=== PATIENT | male | born 2000 | race Caucasian/White ===

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

== ENCOUNTER 2018-08-08 00:07 | Emergency (ER) | payer MEDICAID ==
--- NOTE | 2018-08-08 00:19 | EDPHY ---
H & P Stated Complaint: Bumped back of head on wall x 2 days ago, intermittent COVARRUBIAS since Time Seen by Provider: 08/08/18 00:19 HPI/ROS: HPI CHIEF COMPLAINT: Headache, posterior head trauma HISTORY OF PRESENT ILLNESS: 18-year-old male, history of concussion, closed head injury, and migraines, presents emergency room with a headache. Patient states he was playing his headphones out of his head 2 days ago and jerked his head backwards and struck the back of his head against a concrete pole. States was rather hard this developed a headache. His headache been persistent for the past 2 days. Went to a concert tonight is headache got worse. No vomiting. Global headache throbbing. No focal weakness numbness or tingling. Due to the ongoing headache decided come the emergency room for evaluation. Past Medical History: Migraine headaches, history of concussion, closed head injury Past Surgical History: No recent surgery Social History: Smokes tobacco. Denies alcohol or drugs. Family History: Noncontributory ROS REVIEW OF SYSTEMS: 10 Systems were reviewed and negative with the exception of the elements mentioned in the history of present illness. Exam Constitutional nontoxic, no acute distress triage nursing summary reviewed, vital signs reviewed, awake/alert. Eyes normal conjunctivae and sclera, EOMI, PERRLA. HENT head is atraumatic on exam, normal inspection, atraumatic, moist mucus membranes, no epistaxis, neck supple/ no meningismus, no raccoon eyes. Respiratory clear to auscultation bilaterally, normal breath sounds, no respiratory distress, no wheezing. Cardiovascular rate normal, regular rhythm, no murmur, no edema, distal pulses normal. Gastrointestinal soft, non-tender, no rebound, no guarding, normal bowel sounds, no distension, no pulsatile mass. Genitourinary no CVA tenderness. Musculoskeletal no midline vertebral tenderness, full range of motion, no calf swelling, no tenderness of extremities, no meningismus, good pulses, neurovascularly intact. Skin pink, warm, & dry, no rash, skin atraumatic. Neurologic normal neurological exam, awake, alert and oriented x 3, AAOx3, moves all 4 extremities equally, motor intact, sensory intact, CN II-XII intact , normal cerebellar, normal vision, normal speech. Psychiatric normal mood/affect. Heme/Lymph/Immune no lymphadenopathy. Differential Diagnosis: Includes but is not limited to in a particular order closed-head injury, concussion, intracranial bleed, skull fracture, subdural, epidural Medical Decision Making: Plan for this patient Tylenol 1 g for pain control, CT scan head without contrast. And re-evaluate Re-evaluation: CT scan head without contrast negative for acute traumatic injury. Called to me by Dr. Pereira. [id number]: Patient re-evaluated resting comfortably. CT scan head without contrast is negative for acute traumatic injury. Patient resting. Normal neurological exam. Recommend close follow-up with his primary care doctor/concussion specialist. Return to the ER for worsening symptoms. He understands. Source: Patient - Personal History Current Tetanus Diphtheria and Acellular Pertussis (TDAP): Yes - Medical/Surgical History Hx Asthma: No Hx Chronic Respiratory Disease: No Hx Diabetes: No Hx Cardiac Disease: No Hx Renal Disease: No Hx Cirrhosis: No Hx Alcoholism: No Hx HIV/AIDS: No Hx Splenectomy or Spleen Trauma: No Other PMH: headache - Social History Smoking Status: Former smoker Constitutional: Initial Vital Signs Temperature (C) 36.7 C 08/08/18 00:12 Heart Rate 90 08/08/18 00:12 Respiratory Rate 16 08/08/18 00:12 Blood Pressure 109/71 08/08/18 00:12 O2 Sat (%) 97 08/08/18 00:12 O2 Delivery Mode Room Air Allergies/Adverse Reactions: No Known Allergies Allergy (Unverified 06/14/11 09:53) Home Medications: Medication Instructions Recorded NO HOME MEDICATIONS 06/14/11 Ibuprofen [Motrin (*)] 800 mg PO Q6-8PRN #30 tab 08/25/16 Ondansetron HCl [Zofran] 4 mg PO Q4-6PRN PRN #10 tablet 08/25/16 Medical Decision Making - Data Points Medications Given: Discontinued Medications Acetaminophen (Tylenol) 1,000 mg PO EDNOW ONE Stop: 08/08/18 00:25 Last Admin: 08/08/18 00:46 Dose: 1,000 mg Departure - Departure Disposition: Home, Routine, Self-Care Clinical Impression: Concussion Qualifiers: Encounter type: initial encounter Loss of consciousness presence/duration: without LOC Qualified Code(s): S06.0X0A - Concussion without loss of consciousness, initial encounter Condition: Good Instructions: Concussion (ED) Additional Instructions: 1. Follow up with your primary care doctor. 2. Return emergency room if there is worsening symptoms Referrals: NONE *PRIMARY CARE P,. [Primary Care Provider] - As per Instructions Yanira Root MD [Medical Doctor] - As per Instructions
[2018-08-08] MEDS ORDERED: ACETAMINOPHEN 500 MG TAB PO ONE (00:24)
[2018-08-08 01:48] VITALS: BP 112/68
== END 2018-08-08 01:48 | disposition home or self-care (01) ==
DX: S06.0X0A Concussion without loss of consciousness, initial encounter (principal); F17.200 Nicotine dependence, unspecified, uncomplicated; W22.8XXA Striking against or struck by other objects, initial encounter; Y93.89 Activity, other specified; Y99.9 Unspecified external cause status; Y92.9 Unspecified place or not applicable

== ENCOUNTER 2019-01-28 17:45 | Inpatient (IN) | payer MEDICAID ==
--- NOTE | 2019-01-28 17:51 | EDPHY ---
H & P Time Seen by Provider: 01/28/19 17:47 HPI/ROS: HPI Heroin overdose. Unresponsive. 18-year-old male by ambulance from home. He currently lives with his mother. He has a history of heroin abuse. He reports he has been clean for about 3 weeks but relapsed today. Injection left upper extremity at 5:00 p.m.. Mother last saw him working on his computer. She returned to his room and he was on the ground and unresponsive. She called EMS. On arrival a [employer] he was cyanotic in appearance and not breathing. [employer] sat him up and he started to breathe spontaneously. On EMS arrival he was breathing spontaneously in communicating. They established to IVs bilateral antecubital. Patient was given for 1 mg of IV Narcan and became more alert. No history of trauma. Denies other ingestion. He does not have any complaints at this time. He denies any homicidal or suicidal ideation. ROS: Constitutional: No fever, no chills. As above. Eyes: No discharge. No changes in vision. ENT: No sore throat. No nasal congestion or rhinorrhea. Respiratory: No cough. No shortness of breath. Cardiac: No chest pain, no palpitations. Gastrointestinal: No abdominal pain, no vomiting, no diarrhea. Genitourinary: No hematuria. No dysuria or increased frequency with urination. Musculoskeletal: No back pain. No neck pain. No myalgias or arthralgias. Skin: No rashes. Neurological: No headache. No focal weakness or altered sensation. Past medical history: Heroin abuse. Otherwise no past medical history. Social history: Nonsmoker. Denies alcohol. Currently lives with his mother. As above. Physical Exam: General Appearance: Alert, mildly anxious. He is not in distress.. This patient is responding to questions appropriately and in full sentences. This patient appears well-hydrated and well-nourished. Eyes: Pupils equal and round no pallor or injection. No lid edema, erythema or injection. ENT, Mouth: Mucous membranes are moist. The pharyngeal tissues are unremarkable. No edema or swelling. No asymmetry suggestive of abscess. No erythema or exudates. No tongue lacerations or abrasions. Respiratory: There are no retractions, lungs are clear to auscultation with good air movement bilaterally. Cardiovascular: Regular rate and rhythm. Borderline tachycardia. No murmur. Gastrointestinal: Abdomen is soft and nontender, no masses, bowel sounds normal. No focal tenderness at McBurney's point. No Olvera sign. Neurological: Motor sensory function is grossly intact. Cranial nerves are normal. Gait is normal. Skin: Warm and dry, no rashes. Musculoskeletal: Neck is supple and nontender. Extremities are symmetrical. All joints range without pain or impingement. Psychiatric: No agitation. No depression. Database: EKG: Imaging: Procedures: Emergency department course: Patient placed on a monitor. IV Narcan at the bedside. He has to bilateral antecubital IVs. He will be given 1 L of IV normal saline. Plan for observation at this time. 6:50 p.m., the patient is starting to nod off of bed drop his pulse oximetries. He was given an additional 0.4 mg of IV Narcan. Likely will admit this patient overnight for observation. 7:35 p.m.,, the patient is getting sleepy again. Pulse oximetries on room air in the low 90s. He will be given 0.4 mg of IV Narcan which woke him up again. Plan for admission discussed with the patient and his mother who is now in the room with him. They endorse. Spoke with on-call hospitalist Dr. Leny Mckeon. Case discussed in detail with her. She accepts this patient for admission to the step-down unit. The patient's remaining emergency department course under my care has been uneventful. The patient was admitted to the step-down unit in stable condition. Differential Diagnosis: The differential diagnosis on this patient includes but is not limited to heroin overdose. CVA, acute coronary syndrome, pulmonary embolism unlikely. This represents a partial list of diagnoses considered. These considerations are based on history, physical exam, past history, reassessment and diagnostic testing. Smoking Status: Former smoker Constitutional: Initial Vital Signs Temperature (C) 36.5 C 01/28/19 17:49 Heart Rate 102 H 01/28/19 17:49 Respiratory Rate 16 01/28/19 17:49 Blood Pressure 156/111 H 01/28/19 17:49 O2 Sat (%) 98 01/28/19 17:49 O2 Delivery Mode Nasal Cannula O2 (L/minute) 2 Allergies/Adverse Reactions: No Known Allergies Allergy (Verified 01/28/19 17:49) Home Medications: Medication Instructions Recorded NO HOME MEDICATIONS 07/21/11 Ibuprofen [Motrin (*)] 800 mg PO Q6-8PRN #30 tab 08/25/16 Ondansetron HCl [Zofran] 4 mg PO Q4-6PRN PRN #10 tablet 08/25/16 Medical Decision Making - Data Points Laboratory Results: Laboratory Results 01/28/19 18:01 01/28/19 18:01 01/28/19 01/28/19 18:01 18:01 WBC 12.18 10^3/uL H 10^3/uL (3.80-9.50) RBC 5.62 10^6/uL 10^6/uL (4.40-6.38) Hgb 16.5 g/dL g/dL (13.7-17.5) Hct 49.5 % % (40.0-51.0) MCV 88.1 fL fL (81.5-99.8) MCH 29.4 pg pg (27.9-34.1) MCHC 33.3 g/dL g/dL (32.4-36.7) RDW 14.2 % % (11.5-15.2) Plt Count 317 10^3/uL 10^3/uL (150-400) MPV 9.7 fL fL (8.7-11.7) Neut % (Auto) Not Reported Lymph % (Auto) Not Reported [place] % (Auto) Not Reported Eos % (Auto) Not Reported Baso % (Auto) Not Reported Nucleat RBC Rel Count Not Reported Absolute Neuts (auto) Not Reported Absolute Lymphs (auto) Not Reported Absolute Monos (auto) Not Reported Absolute Eos (auto) Not Reported Absolute Basos (auto) Not Reported Absolute Nucleated RBC Not Reported Immature Gran % Not Reported Seg Neutrophils % 28.0 % % Band Neutrophils % 5.0 % % Lymphocytes % 53.0 % % Monocytes % 7.0 % % Eosinophils % 5.0 % % Basophils % 1.0 % % Metamyelocytes % 1.0 % % Myelocytes % 0.0 % % Promyelocytes % 0.0 % % Blast Cells % 0.0 % % Immature Gran # Not Reported Absolute Seg Neuts 3.41 10^3/uL 10^3/uL (1.70-6.50) Absolute Band Neuts 0.61 10^3/uL 10^3/uL (0.00-0.70) Absolute Lymphocytes 6.46 10^3/uL H 10^3/uL (1.00-3.00) Absolute Monocytes 0.85 10^3/uL H 10^3/uL (0.30-0.80) Absolute Eosinophils 0.61 10^3/uL H 10^3/uL (0.03-0.40) Absolute Basophils 0.12 10^3/uL H 10^3/uL (0.02-0.10) Absolute Metamyelocyte 0.12 10^3/mL H 10^3/mL (0.00-0.00) Absolute Myelocytes 0.00 10^3/mL 10^3/mL (0.00-0.00) Absolute Promyelocytes 0.00 10^3/uL 10^3/uL (0.00-0.00) Absolute Plasma Cells 0.00 10^3/uL 10^3/uL (0.00-0.00) Nucleated RBCs 0 /100 WBC /100 WBC (0-0) RBC/WBC/PLT Morphology NORMAL (NORMAL) Absolute Blast Cells 0.00 10^3/uL 10^3/uL (0.00-0.00) Plasma Cells % 0.0 % % Platelet Estimate ADEQUATE (ADEQ) Smear Review By Pending Sodium 135 mEq/L mEq/L (135-145) Potassium 4.4 mEq/L mEq/L (3.5-5.2) Chloride 102 mEq/L mEq/L (97-110) Carbon Dioxide 25 mEq/l mEq/l (22-31) Anion Gap 8 mEq/L mEq/L (6-14) BUN 14 mg/dL mg/dL (7-23) Creatinine 0.9 mg/dL mg/dL (0.7-1.3) Estimated GFR > 60 Glucose 193 mg/dL H mg/dL (70-100) Calcium 9.8 mg/dL mg/dL (8.5-10.4) Medications Given: Discontinued Medications Sodium Chloride (Ns) 1,000 mls @ 0 mls/hr IV EDNOW ONE; Wide Open PRN Reason: Protocol Stop: 01/28/19 17:56 Last Admin: 01/28/19 18:02 Dose: 1,000 mls Naloxone HCl (Narcan) 0.4 mg IVP EDNOW ONE Stop: 01/28/19 18:52 Last Admin: 01/28/19 18:52 Dose: 0.4 mg Departure - Departure Disposition: [facility] Inpatient Acute Clinical Impression: Heroin overdose Referrals: NONE *PRIMARY CARE P,. [Primary Care Provider] - As per Instructions
[2019-01-28] MEDS ORDERED: NS 1,000 ML IV ONE (17:55)
[2019-01-28] MEDS ORDERED: NALOXONE HCL 0.4 MG/ML INJ ONE (17:58)
[2019-01-28 18:05] LABS: PLATELET COUNT 317 10^3/uL (150-400)
[2019-01-28] MEDS ORDERED: NALOXONE HCL 0.4 MG/ML INJ IVP ONE (18:51)
[2019-01-28] MEDS ORDERED: ONDANSETRON 4 MG/2 ML VIAL IVP PRN (20:51)
[2019-01-28] MEDS ORDERED: PROMETHAZINE HCL 25 MG/ML INJ IVP PRN (20:51)
[2019-01-28] MEDS ORDERED: LORazepam 2 MG/ML INJ IVP PRN (20:51)
[2019-01-28] MEDS ORDERED: ACETAMINOPHEN 325 MG TAB PO PRN (20:51)
[2019-01-28] MEDS ORDERED: ONDANSETRON DISINTEGRATING 4 MG TAB PO PRN (20:51)
[2019-01-28] MEDS ORDERED: NALOXONE HCL 0.4 MG/ML INJ IVP PRN (20:51)
[2019-01-28] MEDS ORDERED: NS 1,000 ML IV SCH (21:00)
--- NOTE | 2019-01-28 22:48 | PDGENHP ---
History and Physical - Chief Complaint heroin overdose - History of Present Illness 18 yo M with PMH of heroin use as well as CHI and migraines presenting after being found unresponsive at his home by his mother. Patients mother had returned home to find him unresponsive and cyanotic on the ground of her home, she called EMS who were able to sit him up and he began breathing on his own, they administered narcan which led to him waking up quite a bit more. On arrival in the ER he again became somnolent with respiratory depression requiring 2 more administrations of narcan. When I speak with him, he is intermittently awake and conversant and then will again breathe much slower and fall asleep until he is shaken awake. He notes that he was off heroin for 3 weeks until today. He relapsed due to the stress of having several friends recently, including one who of a heroin overdose. He notes that the heroin has been more unpredictable recently, that it is coming from [place] and has a higher percentage of fentanyl than previously contained. He states he has never been in treatment though he has attended NA meetings. His mother present at bedside notes that she is worried about him and how sleepy he currently is. History Information - Allergies/Home Medication List Allergies/Adverse Reactions: No Known Allergies Allergy (Verified 01/28/19 17:49) Home Medications: Herbals/Supplements -Info Only 1 ea PO DAILY 01/28/19 [Last Taken Unknown] Ibuprofen [Motrin (*)] 600 mg PO BID PRN 01/28/19 [Last Taken Unknown] I have personally reviewed and updated: family history, medical history, social history, surgical history - Past Medical History migraines Additional medical history: heroin use disorder. hx of concussion/CHI - Surgical History Reports: no pertinent surgical hx - Family History Positive for: non-pertinent - Social History Smoking Status: Former smoker Alcohol Use: Occasionally Drug Use: Heroin, Marijuana Additional social history: lives with his mother Review of Systems Review of Systems: ROS: 10pt was reviewed & negative except for what was stated in HPI & below Physical Exam Physical Exam: Temp Pulse Resp BP Pulse Ox 36.5 C 72 10 L 127/87 H 97 01/28/19 21:15 01/28/19 21:15 01/28/19 21:15 01/28/19 21:15 01/28/19 21:15 O2 (L/minute) 4 Constitutional: unkempt, other (thin) Eyes: PERRL, other (pinpoint pupils) Ears, Nose, Mouth, Throat: poor dentition, dry mucous membranes Cardiovascular: regular rate and rhythym, no murmur, rub, or gallop, No edema Respiratory: no respiratory distress, no rales or rhonchi, other (respiratory rate of 6 at times) Gastrointestinal: normoactive bowel sounds, soft, non-tender abdomen Genitourinary: no bladder tenderness Skin: warm, normal color, other (track anna, circular hypopigmented macules on arms) Musculoskeletal: full muscle strength Neurologic: other (somnolent, falling asleep while talking) Psychiatric: interacting appropriately, not anxious Lab Data & Imaging Review 01/28/19 18:01 01/28/19 18: WBC 12.18 10^3/uL (3.80-9.50) H 01/28/19 18: RBC 5.62 10^6/uL (4.40-6.38) 01/28/19 18: Hgb 16.5 g/dL (13.7-17.5) 01/28/19 18: Hct 49.5 % (40.0-51.0) 01/28/19 18: MCV 88.1 fL (81.5-99.8) 01/28/19 18: MCH 29.4 pg (27.9-34.1) 01/28/19 18:01 MCHC 33.3 g/dL (32.4-36.7) 01/28/19 18: RDW 14.2 % (11.5-15.2) 01/28/19 18: Plt Count 317 10^3/uL (150-400) 01/28/19 18: MPV 9.7 fL (8.7-11.7) 01/28/19 18:01 Neut % (Auto) Not Reported 01/28/19 18: Lymph % (Auto) Not Reported 01/28/19 18:01 Bartholomew % (Auto) Not Reported 01/28/19 18: Eos % (Auto) Not Reported 01/28/19 18: Baso % (Auto) Not Reported 01/28/19 18:01 Nucleat RBC Rel Count Not Reported 01/28/19 18:01 Absolute Neuts (auto) Not Reported 01/28/19 18:01 Absolute Lymphs (auto) Not Reported 01/28/19 18:01 Absolute Monos (auto) Not Reported 01/28/19 18:01 Absolute Eos (auto) Not Reported 01/28/19 18:01 Absolute Basos (auto) Not Reported 01/28/19 18:01 Absolute Nucleated RBC Not Reported 01/28/19 18:01 Immature Gran % Not Reported 01/28/19 18:01 Seg Neutrophils % 28.0 % 01/28/19 18:01 Band Neutrophils % 5.0 % 01/28/19 18:01 Lymphocytes % 53.0 % 01/28/19 18:01 Monocytes % 7.0 % 01/28/19 18:01 Eosinophils % 5.0 % 01/28/19 18:01 Basophils % 1.0 % 01/28/19 18:01 Metamyelocytes % 1.0 % 01/28/19 18:01 Myelocytes % 0.0 % 01/28/19 18:01 Promyelocytes % 0.0 % 01/28/19 18:01 Blast Cells % 0.0 % 01/28/19 18:01 Immature Gran # Not Reported 01/28/19 18:01 Absolute Seg Neuts 3.41 10^3/uL (1.70-6.50) 01/28/19 18:01 Absolute Band Neuts 0.61 10^3/uL (0.00-0.70) 01/28/19 18:01 Absolute Lymphocytes 6.46 10^3/uL (1.00-3.00) H 01/28/19 18:01 Absolute Monocytes 0.85 10^3/uL (0.30-0.80) H 01/28/19 18:01 Absolute Eosinophils 0.61 10^3/uL (0.03-0.40) H 01/28/19 18:01 Absolute Basophils 0.12 10^3/uL (0.02-0.10) H 01/28/19 18:01 Absolute Metamyelocyte 0.12 10^3/mL (0.00-0.00) H 01/28/19 18:01 Absolute Myelocytes 0.00 10^3/mL (0.00-0.00) 01/28/19 18:01 Absolute Promyelocytes 0.00 10^3/uL (0.00-0.00) 01/28/19 18:01 Absolute Plasma Cells 0.00 10^3/uL (0.00-0.00) 01/28/19 18:01 Nucleated RBCs 0 /100 WBC (0-0) 01/28/19 18:01 RBC/WBC/PLT Morphology NORMAL (NORMAL) 01/28/19 18:01 Absolute Blast Cells 0.00 10^3/uL (0.00-0.00) 01/28/19 18:01 Plasma Cells % 0.0 % 01/28/19 18:01 Platelet Estimate ADEQUATE (ADEQ) 01/28/19 18:01 Sodium 135 mEq/L (135-145) 01/28/19 18:01 Potassium 4.4 mEq/L (3.5-5.2) 01/28/19 18:01 Chloride 102 mEq/L (97-110) 01/28/19 18:01 Carbon Dioxide 25 mEq/l (22-31) 01/28/19 18:01 Anion Gap 8 mEq/L (6-14) 01/28/19 18:01 BUN 14 mg/dL (7-23) 01/28/19 18:01 Creatinine 0.9 mg/dL (0.7-1.3) 01/28/19 18:01 Estimated GFR > 60 01/28/19 18:01 Glucose 193 mg/dL (70-100) H 01/28/19 18:01 Calcium 9.8 mg/dL (8.5-10.4) 01/28/19 18:01 Assessment & Plan Assessment: Heroin overdose (Acute) 18 yo M with hx of opiate use disorder presenting s/p heroin overdose # heroin overdose: unintentional and coming after a prolonged period of abstinence with likely decreased tolerance and higher risk of by OD, patients close friend with presumably same source of drugs in the last couple of weeks of OD. Given continued difficulty maintaining alertness and continued episodes of hypoventilation, will admit to SDU overnight and continue prn narcan. At this time do not think he requires narcan drip, but low threshold to initiate if he is failing to maintain alertness. # opiate use disorder: patient too somnolent to discuss at length and patients mother not clearly understanding his situation and risk of adverse outcome if he continues using heroin--recommending he seek IP treatment after discharge and /or suboxone therapy, will need to discuss with patient further in am when he is more alert # acute hypoxic respiratory failure: currently requiring 4L of o2 to maintain sats > 90% in the setting of central hypoventilation from opiate OD as above, continue supplemental o2, lungs sound clear # hx of migraine/CHI # IP status, patient high risk for adverse outcome given heroin overdose and need for narcan and will require monitoring in step down unit, > 40 min critical care time spent in evaluation of patient at bedside and coordination of care with nursing and ER doctor Patient new to my care. Old records reviewed and summarized as above. Further hx obtained from patients mother as above.
--- NOTE | 2019-01-29 09:29 | PDMN ---
Medical Necessity Medical necessity: Pt meets IP criteria per MD & MCG M-153 Drug Ingestion or Overdose; est los >2 mn for eval/tx of heroin overdose w/acute hypoxic respiratory failure (requiring 4 lpm O2 to maintain sats >90%) & continued episodes of hypoventilation; pt high risk for adverse outcome; admit for close SDU monitoring & PRN Narcan; per H&P & order 01/28/19
[2019-01-29 10:36] VITALS: BP 110/70
--- NOTE | 2019-01-29 11:53 | HOSPPROG ---
Hospitalist Progress Note Assessment/Plan: 18 yo M w heroin overdose, now resolved home today see dc summary Subjective: alert, conversant. rr 14, which is normal Objective: Vital Signs Temp Pulse Resp BP Pulse Ox 37 C 64 14 110/70 92 01/29/19 04:00 01/29/19 08:00 01/29/19 08:00 01/29/19 08:00 01/29/19 08:00 01/28/19 01/29/19 01/30/19 05:59 05:59 05:59 Intake Total 1300 Balance 1300 - Physical Exam Constitutional: no apparent distress, appears nourished Eyes: PERRL, anicteric sclera Ears, Nose, Mouth, Throat: moist mucous membranes, hearing normal Cardiovascular: regular rate and rhythym, no murmur, rub, or gallop Respiratory: no respiratory distress, no rales or rhonchi Gastrointestinal: normoactive bowel sounds, soft, non-tender abdomen Genitourinary: No dangelo in urethra Skin: warm Musculoskeletal: full muscle strength ICD10 Worksheet Patient Problems: Problems Problem Status Onset Heroin overdose Acute
--- NOTE | 2019-01-29 11:59 | ASMTCAGE ---
CAGE Do you feel you ought to Answers: Yes cut down on your drinking or drug use? Do people annoy you by Answers: No criticizing your drinking or drug use? Do you feel guilty about Answers: Yes your drinking or drug use? 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 Additional Comments Patient interested in receiving resources, CM provided. Date Signed: 01/29/2019 11:58 AM Electronically Signed By:Marivel Hager RN
--- NOTE | 2019-01-29 12:06 | GDS ---
[f rep st] DISCHARGE SUMMARY DISCHARGE DIAGNOSES: Heroin overdose with requiring 3 doses of Narcan. Please see admission history and physical by Dr. Leny Hernandez. The patient presented with somnole nce. He was found down by his mother. He woke up with Narcan given by EMS, and then he woke up agai n. He required a couple extra doses. He was monitored overnight in the step-down unit with reasonab le respiratory rates. No oxygen requirement. When I speak with the patient, he is alert, conversant , insightful regarding his longstanding addiction. He wishes to continue to seek help. He is discha rged home with no medications. /[id number]/MODL
--- NOTE | 2019-01-29 12:11 | ASMTCMCOM ---
CM Note CM Note Notes: Discussed case with RN and MD. Met with patient, he has expressed interested in drug cessation resources and is open to establishing care with [facility]. CM has provided a variety of Medicaid drug resources and encouraged him to initiate his first contact with [facility] [place]. A [facility] appt has also been scheduled for January 30 @ 11:40 a.m. Patient lives with his mother, he will d/c home today independently with follow-up as directed. CM available for further needs. Plan: Independent Date Signed: 01/29/2019 12:10 PM Electronically Signed By:Marivel Hager RN
--- NOTE | 2019-01-29 12:12 | ASDISCHSUM ---
Discharge Information Plan Status:Home with No Needs Medically Cleared to Leave: Discharge Date: CM D/C Disposition:Home, Routine, Self-Care ADT D/C Disposition: Projected Discharge Date: Transportation at D/C:Friend Discharge Delay Reason: Follow-Up Date: Discharge Slot: Final Diagnosis: Placement Information Patient Contact Information Contact Name:DIPESH Relationship:Mother Address:[address] City:[place] Alternate Phone: State/Zip Code:[place] [address] Email: Financial Information Financial Class:Medicaid Primary Plan Desc[place] Primary Plan Number:[id number] Secondary Plan Desc: Secondary Plan Number: Assessment Information LACE LACE Length of stay for Answers: Less than 1 day current admission Acuity / Level of Answers: Yes Care: Did the patient have an inpatient admission? # of Emergency department Answers: 1-2 visits in the last 6 months Social determinants Answers: History of substance abuse (ETOH, street drugs, prescription drugs, etc.) Score: 7 Date Signed: 01/29/2019 12:11 PM Electronically Signed By:Marivel Hager RN CAGE Questionnaire CAGE Do you feel you ought to Answers: Yes cut down on your drinking or drug use? Do people annoy you by Answers: No criticizing your drinking or drug use? Do you feel guilty about Answers: Yes your drinking or drug use? 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 Additional Comments Patient interested in receiving resources, CM provided. Date Signed: 01/29/2019 11:58 AM Electronically Signed By:Marivel Hagre RN [facility] Progress Note CM Note CM Note Notes: Discussed case with RN and MD. Met with patient, he has expressed interested in drug cessation resources and is open to establishing care with [facility]. CM has provided a variety of Medicaid drug resources and encouraged him to initiate his first contact with [facility] of [place]. [facility] appt has also been scheduled for January 30 @ 11:40 a.m. Patient lives with his mother, he will d/c home today independently with follow-up as directed. CM available for further needs. Plan: Independent Date Signed: 01/29/2019 12:10 PM Electronically Signed By:Marivel Hager RN Intervention Information Intervention Type:*Incorrect Registration Date of Service:01/28/2019 07:06 AM Patient Type:Observation Staff Member:ASTON Bolton Courtney Hours: Discipline: Severity: Comment:
== END 2019-01-29 12:40 | disposition home or self-care (01) | DRG 812 ==
LOC: EDUNIT# → OBSVTOIN 20:16 → F2N 20:54
PROVIDERS: ADMIT Internal Medicine; ATTEND Internal Medicine
DX: T40.2X1A Poisoning by other opioids, accidental (unintentional), initial encounter (principal); G43.909 Migraine, unspecified, not intractable, without status migrainosus; Z23 Encounter for immunization
CPT/HCPCS: 96374; G0008; J2310; J2405